=== PATIENT | female | born 1945 | race Caucasian/White ===

== ENCOUNTER 2024-08-03 21:58 | Inpatient (IN) | payer OTHER, SELFPAY ==
[2024-08-03 15:53] VITALS: BP 175/84
--- NOTE | 2024-08-03 15:55 | ED.GENMED ---
ED Provider Triage
<Amilcar Berman PA-C - Last Filed: 08/03/24 15:56>
-
Patient seen by provider in Triage?: Seen in Triage
Attestation: A medical screening examination has been initiated by a qualified medical provider. Based on the assessment performed at this time, it has been determined that an emergent medical condition may exist and the patient has been informed
that further medical evaluation and possible additional diagnostic testing may be needed.
HPI: 78-year-old female presents to the emergency department for evaluation shortness of breath as well as a 5 pound weight gain over the past several days. Notes that her tobacco dipper recently discontinued her diuretic and started her on
lisinopril and metoprolol, feels as though the symptoms have progressed since that time. No chest pain
GENERAL: Alert , in no apparent distress
EYE: No visual abnormalities.
NECK: Trachea midline
ENT: No visible abnormalities.
LUNGS: Mildly tachypneic, no rales
NEUROLOGICAL: Alert and oriented
SKIN: Skin intact. No visible changes.
MUSCULOSKELETAL: Moving extremities normally
PSYCH: Normal and appropriate interaction.
This is a medical evaluation conducted in person to initiate diagnostic evaluation and provide initial therapeutics. Please see further documentation by the treating clinician.
History of Present Illness
<Amilcar Berman PA-C - Last Filed: 08/03/24 15:56>
General
Chief Complaint: Breathing Problem
Time Seen by Provider: 08/03/24 18:41
<Jasvir Alvarez DO - Last Filed: 08/03/24 19:04>
General
Source: patient
History of Present Illness
History of Present Illness:
78-year-old female presents to the emergency room complaining of shortness of breath with exertion. Patient feels like she needs to stop walking after about 25 feet or so to catch her breath. This is not typical for her. Patient states that she
has been increasing shortness of breath the past week or so. She contacted her tobacco dipper at [facility] who recommended she come to the emergency room. She feels like she may have had about a 5 pound weight gain over the past month or so. She
denies any chest pain. She denies any fever, chills, cough.
Phy Exam
<Jasvir Alvarez DO - Last Filed: 08/03/24 19:04>
Physical Exam
Physical Exam:
General: Awake, Alert, Oriented X3. No acute distress.
Vitals: unremarkable
Head: Atraumatic
Eyes: Pupils equal, EOMI
Throat: Airway intact, no exudates
Neck: Trachea midline
Lungs: Crackles bilaterally, decreased breath sounds bilateral bases
Heart: Regular rate, 2/6 murmurs
Abd: Soft, Nontender, No pulsatile mass
Neuro: Nonfocal
Skin: Warm, dry, no rash
Extremities: pulses equal b/l, 1+ edema
Scores
<Chuck Dee MD - Last Filed: 08/04/24 02:58>
Heart Failure Risk
Heart Failure Risk Score: Not Applicable
Course
<Amilcar Berman PA-C - Last Filed: 08/03/24 15:56>
Orders/Labs/Results
Orders:
Orders
08/03/24 Dinner
NPO
Allow oral meds: Yes
Allow clear liquids: No
08/03/24 15:52
Electrocardiogram (*1) Urgent
Reason for Study: Shortness of Breath
08/03/24 15:53
EKG- Treatment ONCE
08/03/24 15:56
CR Chest - 2 Views Urgent
Comment:
Reason For Exam: SOB
08/03/24 16:08
Complete Blood Count/With Diff Urgent
Comprehensive Metabolic Panel Urgent
NT-proBNP Urgent
Troponin I Urgent
08/03/24 19:01
CT Chest PE Study Urgent
Comment:
Reason For Exam: sob with exertion
08/03/24 20:27
Furosemide [Lasix] 40 mg IV NOW STA
Nitroglycerin Ointment [Nitro-Bid] 1 inch TOPICAL NOW STA
08/03/24 21:26
Admit/Transfer Patient As Directed
Co-Sign Provider:
Level of Care: Inpatient admission
Assign to:: Medical/Surgical
Physician / Group: Matt De Santiago
Diagnosis: Large hiatal hernia containing an intrathoracic stomach with organoaxial ro
Reason for Hospitalization: Large hiatal hernia containing an intrathoracic stomach with organoaxial rotation
Expected length of stay greater than two midnights?: Yes
ELOS- Estimated Length of Stay in days: 3
I certify the patient meets the requirements for IP care: Yes
PRN Pain Medication Management As Directed
May give lesser potent ordered pain med per pt: Yes
preference::
Protocol:: Medication orders for pain may be administered in a
manner that supports deferring to patient preference
when the pt is:
- Requesting an ordered lesser potent pain medication.
Least to most potent pain medications are defined
as: acetaminophen < NSAID < tramadol < opioids
(morphine, oxycodone, hydromorphone).
- Requesting a lesser dose of the same medication IF
ORDERED.
- Requesting a less intrusive route of administration
if both routes are prescribed by the provider (PO <
IV).
08/03/24 21:27
Code Status As Directed
Resuscitation Status: Full Code
08/03/24 22:16
Lactate Level [Lactic Acid] Urgent
08/03/24 22:46
Metoprolol Xl [Toprol Xl] 25 mg PO HS
Polyethylene Glycol Powder [Miralax] 17 grams PO DAILYPRN PRN
08/03/24 22:46
Activity As Directed
Activity Level: Ambulate
Gastrointestinal Tubes As Directed
Type: [place] sump
To suction?: Yes
Type of suction: Low intermittent
Irrigate tube?: No
Pneumatic Compression Sleeves As Directed
Type: Knee high
Vital Signs As Directed
Frequency: Per unit guidelines
Weight As Directed
Frequency: Once
DX Deep Vein Thrombosis Video Routine
08/04/24 06:00
Basic Metabolic Panel IN AM
Complete Blood Count/No Diff IN AM
Levothyroxine [Synthroid] 50 mcg PO DAILY@0600
08/04/24 08:00
Ascorbic Acid [Vitamin C] 500 mg PO DAILY
Aspirin Chewable [Low Strength Aspirin] 81 mg PO DAILY
Cholecalciferol (Vitamin D3) [VITAMIN D3 (cholecalciferol)] 25 mcg PO DAILY
Cyanocobalamin [Vitamin B-12] 1,000 mcg PO DAILY
Lisinopril [Zestril] 20 mg PO DAILY
Multivitamin [Theragran] 1 tablet PO DAILY
Pantoprazole [Protonix] 40 mg PO DAILY
08/04/24 18:00
Rosuvastatin Calcium [Crestor] 10 mg PO MoWeFr@1800
08/04/24 21:26
coenzyme Q10 [CoQ-10] 100 mg PO MOWEFR
Abnormal Lab Results
08/03/24
16:08
MCHC 31.9 L g/dL
(33.0-37.0)
RDW 14.6 H %
(11.5-14.5)
Absolute Lymphs (auto) 0.9 L 10^3/uL
(1.2-3.4)
Absolute Monos (auto) 0.7 H 10^3/uL
(0.1-0.6)
Neutrophils % 76.6 H %
(42.2-75.2)
Lymphocytes % 12.4 L %
(20.5-51.1)
Carbon Dioxide 31 H mmol/L
(22-30)
BUN 22 H mg/dl
(7-17)
Glucose 109 H mg/dl
(70-99)
08/03/24 16:08
08/03/24 16:08
Vital Signs
Initial and Last Documented VS:
Initial Vital Signs
Temp Pulse Resp BP Pulse Ox
36.7 C 75 18 175/84 96
08/03/24 15:53 08/03/24 15:53 08/03/24 15:53 08/03/24 15:53 08/03/24 15:53
Last Documented Vital Signs
Temp Pulse Resp BP Pulse Ox
37.9 C 71 14 162/92 94
08/03/24 22:49 08/03/24 23:13 08/03/24 22:49 08/03/24 23:13 08/04/24 00:24
<Jasvir Alvarez, DO - Last Filed: 08/03/24 19:04>
Orders/Labs/Results
Orders:
Orders
08/03/24 Dinner
NPO
Allow oral meds: Yes
Allow clear liquids: No
08/03/24 15:52
Electrocardiogram (*1) Urgent
Reason for Study: Shortness of Breath
08/03/24 15:53
EKG- Treatment ONCE
08/03/24 15:56
CR Chest - 2 Views Urgent
Comment:
Reason For Exam: SOB
08/03/24 16:08
Complete Blood Count/With Diff Urgent
Comprehensive Metabolic Panel Urgent
NT-proBNP Urgent
Troponin I Urgent
08/03/24 19:01
CT Chest PE Study Urgent
Comment:
Reason For Exam: sob with exertion
08/03/24 20:27
Furosemide [Lasix] 40 mg IV NOW STA
Nitroglycerin Ointment [Nitro-Bid] 1 inch TOPICAL NOW STA
08/03/24 21:26
Admit/Transfer Patient As Directed
Co-Sign Provider:
Level of Care: Inpatient admission
Assign to:: Medical/Surgical
Physician / Group: Matt De Santiago
Diagnosis: Large hiatal hernia containing an intrathoracic stomach with organoaxial ro
Reason for Hospitalization: Large hiatal hernia containing an intrathoracic stomach with organoaxial rotation
Expected length of stay greater than two midnights?: Yes
ELOS- Estimated Length of Stay in days: 3
I certify the patient meets the requirements for IP care: Yes
PRN Pain Medication Management As Directed
May give lesser potent ordered pain med per pt: Yes
preference::
Protocol:: Medication orders for pain may be administered in a
manner that supports deferring to patient preference
when the pt is:
- Requesting an ordered lesser potent pain medication.
Least to most potent pain medications are defined
as: acetaminophen < NSAID < tramadol < opioids
(morphine, oxycodone, hydromorphone).
- Requesting a lesser dose of the same medication IF
ORDERED.
- Requesting a less intrusive route of administration
if both routes are prescribed by the provider (PO <
IV).
08/03/24 21:27
Code Status As Directed
Resuscitation Status: Full Code
08/03/24 22:16
Lactate Level [Lactic Acid] Urgent
08/03/24 22:46
Metoprolol Xl [Toprol Xl] 25 mg PO HS
Polyethylene Glycol Powder [Miralax] 17 grams PO DAILYPRN PRN
08/03/24 22:46
Activity As Directed
Activity Level: Ambulate
Gastrointestinal Tubes As Directed
Type: [place] sump
To suction?: Yes
Type of suction: Low intermittent
Irrigate tube?: No
Pneumatic Compression Sleeves As Directed
Type: Knee high
Vital Signs As Directed
Frequency: Per unit guidelines
Weight As Directed
Frequency: Once
DX Deep Vein Thrombosis Video Routine
08/04/24 06:00
Basic Metabolic Panel IN AM
Complete Blood Count/No Diff IN AM
Levothyroxine [Synthroid] 50 mcg PO DAILY@0600
08/04/24 08:00
Ascorbic Acid [Vitamin C] 500 mg PO DAILY
Aspirin Chewable [Low Strength Aspirin] 81 mg PO DAILY
Cholecalciferol (Vitamin D3) [VITAMIN D3 (cholecalciferol)] 25 mcg PO DAILY
Cyanocobalamin [Vitamin B-12] 1,000 mcg PO DAILY
Lisinopril [Zestril] 20 mg PO DAILY
Multivitamin [Theragran] 1 tablet PO DAILY
Pantoprazole [Protonix] 40 mg PO DAILY
08/04/24 18:00
Rosuvastatin Calcium [Crestor] 10 mg PO MoWeFr@1800
08/04/24 21:26
coenzyme Q10 [CoQ-10] 100 mg PO MOWEFR
Abnormal Lab Results
08/03/24
16:08
MCHC 31.9 L g/dL
(33.0-37.0)
RDW 14.6 H %
(11.5-14.5)
Absolute Lymphs (auto) 0.9 L 10^3/uL
(1.2-3.4)
Absolute Monos (auto) 0.7 H 10^3/uL
(0.1-0.6)
Neutrophils % 76.6 H %
(42.2-75.2)
Lymphocytes % 12.4 L %
(20.5-51.1)
Carbon Dioxide 31 H mmol/L
(22-30)
BUN 22 H mg/dl
(7-17)
Glucose 109 H mg/dl
(70-99)
08/03/24 16:08
08/03/24 16:08
Vital Signs
Initial and Last Documented VS:
Initial Vital Signs
Temp Pulse Resp BP Pulse Ox
36.7 C 75 18 175/84 96
08/03/24 15:53 08/03/24 15:53 08/03/24 15:53 08/03/24 15:53 08/03/24 15:53
Last Documented Vital Signs
Temp Pulse Resp BP Pulse Ox
37.9 C 71 14 162/92 94
08/03/24 22:49 08/03/24 23:13 08/03/24 22:49 08/03/24 23:13 08/04/24 00:24
<Chuck Dee MD - Last Filed: 08/04/24 02:58>
Orders/Labs/Results
Orders:
Orders
08/03/24 Dinner
NPO
Allow oral meds: Yes
Allow clear liquids: No
08/03/24 15:52
Electrocardiogram (*1) Urgent
Reason for Study: Shortness of Breath
08/03/24 15:53
EKG- Treatment ONCE
08/03/24 15:56
CR Chest - 2 Views Urgent
Comment:
Reason For Exam: SOB
08/03/24 16:08
Complete Blood Count/With Diff Urgent
Comprehensive Metabolic Panel Urgent
NT-proBNP Urgent
Troponin I Urgent
08/03/24 19:01
CT Chest PE Study Urgent
Comment:
Reason For Exam: sob with exertion
08/03/24 20:27
Furosemide [Lasix] 40 mg IV NOW STA
Nitroglycerin Ointment [Nitro-Bid] 1 inch TOPICAL NOW STA
08/03/24 21:26
Admit/Transfer Patient As Directed
Co-Sign Provider:
Level of Care: Inpatient admission
Assign to:: Medical/Surgical
Physician / Group: Matt De Santiago
Diagnosis: Large hiatal hernia containing an intrathoracic stomach with organoaxial ro
Reason for Hospitalization: Large hiatal hernia containing an intrathoracic stomach with organoaxial rotation
Expected length of stay greater than two midnights?: Yes
ELOS- Estimated Length of Stay in days: 3
I certify the patient meets the requirements for IP care: Yes
PRN Pain Medication Management As Directed
May give lesser potent ordered pain med per pt: Yes
preference::
Protocol:: Medication orders for pain may be administered in a
manner that supports deferring to patient preference
when the pt is:
- Requesting an ordered lesser potent pain medication.
Least to most potent pain medications are defined
as: acetaminophen < NSAID < tramadol < opioids
(morphine, oxycodone, hydromorphone).
- Requesting a lesser dose of the same medication IF
ORDERED.
- Requesting a less intrusive route of administration
if both routes are prescribed by the provider (PO <
IV).
08/03/24 21:27
Code Status As Directed
Resuscitation Status: Full Code
08/03/24 22:16
Lactate Level [Lactic Acid] Urgent
08/03/24 22:46
Metoprolol Xl [Toprol Xl] 25 mg PO HS
Polyethylene Glycol Powder [Miralax] 17 grams PO DAILYPRN PRN
08/03/24 22:46
Activity As Directed
Activity Level: Ambulate
Gastrointestinal Tubes As Directed
Type: [place] sump
To suction?: Yes
Type of suction: Low intermittent
Irrigate tube?: No
Pneumatic Compression Sleeves As Directed
Type: Knee high
Vital Signs As Directed
Frequency: Per unit guidelines
Weight As Directed
Frequency: Once
DX Deep Vein Thrombosis Video Routine
08/04/24 06:00
Basic Metabolic Panel IN AM
Complete Blood Count/No Diff IN AM
Levothyroxine [Synthroid] 50 mcg PO DAILY@0600
08/04/24 08:00
Ascorbic Acid [Vitamin C] 500 mg PO DAILY
Aspirin Chewable [Low Strength Aspirin] 81 mg PO DAILY
Cholecalciferol (Vitamin D3) [VITAMIN D3 (cholecalciferol)] 25 mcg PO DAILY
Cyanocobalamin [Vitamin B-12] 1,000 mcg PO DAILY
Lisinopril [Zestril] 20 mg PO DAILY
Multivitamin [Theragran] 1 tablet PO DAILY
Pantoprazole [Protonix] 40 mg PO DAILY
08/04/24 18:00
Rosuvastatin Calcium [Crestor] 10 mg PO MoWeFr@1800
08/04/24 21:26
coenzyme Q10 [CoQ-10] 100 mg PO MOWEFR
Abnormal Lab Results
08/03/24
16:08
MCHC 31.9 L g/dL
(33.0-37.0)
RDW 14.6 H %
(11.5-14.5)
Absolute Lymphs (auto) 0.9 L 10^3/uL
(1.2-3.4)
Absolute Monos (auto) 0.7 H 10^3/uL
(0.1-0.6)
Neutrophils % 76.6 H %
(42.2-75.2)
Lymphocytes % 12.4 L %
(20.5-51.1)
Carbon Dioxide 31 H mmol/L
(22-30)
BUN 22 H mg/dl
(7-17)
Glucose 109 H mg/dl
(70-99)
08/03/24 16:08
08/03/24 16:08
Vital Signs
Initial and Last Documented VS:
Initial Vital Signs
Temp Pulse Resp BP Pulse Ox
36.7 C 75 18 175/84 96
08/03/24 15:53 08/03/24 15:53 08/03/24 15:53 08/03/24 15:53 08/03/24 15:53
Last Documented Vital Signs
Temp Pulse Resp BP Pulse Ox
37.9 C 71 14 162/92 94
08/03/24 22:49 08/03/24 23:13 08/03/24 22:49 08/03/24 23:13 08/04/24 00:24
<Jasvir Alvarez DO - Last Filed: 08/03/24 19:04>
*Pulse Oximetry
Patient hypoxic: no
*EKG
Interpreted by ED Provider?: Yes
Heart Rate: 83
Rate: normal
Rhythm: sinus
[place]: normal axis
Interval: normal interval
QRS Pattern: normal QRS
Ischemia: no ischemia
*Board Member Interpretation
Rate: normal
Interpretation: normal
Heart Rate: 83
Rhythm: sinus
<Chuck Dee MD - Last Filed: 08/04/24 02:58>
*Critical Care Note
Total Time (30-74mins, 75-104mins- exclusive of procedures): Not Applicable
<Chuck Dee MD - Last Filed: 08/04/24 02:58>
Update Note
Update Note:
UPDATE (Chuck Dee MD)
I have seen and evaluated the patient after signout and reviewed all labs and imaging.
Focused HPI: 78-year-old female with a past medical history of hypertension, hyperlipidemia, GERD, hypothyroidism who presents to the ER for evaluation of shortness of breath. Patient reports that she has had worsening exertional dyspnea for the
past few months but particularly bad over the past few weeks. She says that she can barely walk a few steps before becoming winded. She says she is having orthopnea. She said she has about 5 pound weight gain over the past 2 weeks. She does note
her blood pressures have been running high; she apparently was recently switched from benazepril/HCTZ which she was taking until a month ago at which point she was started on metoprolol and lisinopril; she says she was switched because her doctor
wanted to get her off of the diuretic. She does see a tobacco dipper Dr. Aguiar through [facility].
Physical exam: Awake alert no distress. Hypertensive with mild tachypnea. No hypoxia. Breath sounds diminished at the lung bases. No cardiac rubs gallops or murmurs. She does have some JVD and some trace edema in her legs.
Medical Decision Makin-year-old female presents for evaluation of exertional dyspnea, orthopnea, weight gain; history and exam concerning for CHF likely exacerbated by recent hypertension in the setting of blood pressure medication adjustment.
Her CBC and CMP were essentially unremarkable here. Troponin negative. BNP mildly elevated. Chest x-ray showed pulmonary vascular congestion, CTA chest no PE no other acute pathology. Will treat with nitro for hypertension, Lasix. Admit for new
onset CHF. Discussed with hospitalist.
ED Attending Note
<Amilcar Berman PA-C - Last Filed: 08/03/24 15:56>
-
Portions of this chart may have been created with voice recognition software.� Occasional wrong word or��sound alike� substitutions may have occurred due to the inherent limitations of voice recognition software.
Discharge Plan
Departure
Patient Disposition: Admit
Date of Disposition: 08/03/24
Time of Disposition: 20:29
Admit to doctor: Jonnathan
Presentation/result/management discussed w/ accepting MD/DO: Hospitalist
Discharge Problem:
CHF (congestive heart failure), Hypertension
Interventions
Interventions:
*Risk Screen - Suicide Last Done: 08/03/24 22:50
*General Assessment Last Done: 08/03/24 15:53
*Neglect/Abuse Screening Last Done: 08/03/24 15:53
ED- Fall Risk Assessment Last Done: 08/03/24 22:42
*ED COVID-19 Vaccine History Last Done: 08/03/24 22:50
*Nursing Disposition Last Done: 08/03/24 22:42
ED- Cardiac Assessment Last Done: 08/03/24 19:16
ED- Pulmonary Assessment Last Done: 08/03/24 19:16
Discharge Date and Time
Discharge Date/Time: 08/03/24 22:42
[2024-08-03 16:22] LABS: % Basophils 0.4 % (0-2); % Eosinophils 1.5 % (0-6); % Immature Granulocytes 0.5 % (0-0.5); % Lymphocytes 12.4 % (20.5-51.1); % Monocytes 8.6 % (1.7-9.3); % Neutrophils 76.6 % (42.2-75.2); Absolute Eosinophils 0.1 10^3/uL (0-0.7); Absolute Lymphocytes 0.9 10^3/uL (1.2-3.4); Absolute Monocytes 0.7 10^3/uL (0.1-0.6); Absolute Neutrophils 5.8 10^3/uL (1.4-6.5); Hematocrit 43.3 % (37.0-47.0); Hemoglobin 13.8 g/dL (12.0-16.0); Mean Corp Hgb Conc. 31.9 g/dL (33.0-37.0); Mean Corpuscular Hgb 28.7 pg (27.0-31.0); Mean Platelet Volume 10.4 fL (7.4-10.4); Nucleated Red Blood Cells % 0 %; Platelet Count 179 10^3/uL (130-400); Red Blood Cell Count 4.81 10^6/uL (4.20-5.40); Red Cell Dist. Width 14.6 % (11.5-14.5); White Blood Cell Count 7.6 10^3/uL (4.8-10.8)
[2024-08-03 16:35] LABS: ALT (SGPT) 33 U/L (0-35); AST (SGOT) 25 U/L (14-36); Albumin 4.6 g/dl (3.5-5.0); Alkaline Phosphatase 88 U/L (38-126); Blood Urea Nitrogen 22 mg/dl (7-17); Calcium 9.8 mg/dl (8.4-10.2); Carbon Dioxide 31 mmol/L (22-30); Chloride 104 mmol/L (98-107); Glucose 109 mg/dl (70-99); Sodium 140 mmol/L (135-145); Total Bilirubin 0.9 mg/dl (0.2-1.3); Total Protein 6.7 g/dl (6.3-8.2); eGFR > 60.00
[2024-08-03 16:42] LABS: NT-proBNP 556 pg/ml; Troponin I < 0.012 ng/ml
[2024-08-03 18:00] VITALS: BP 154/95
[2024-08-03 19:15] VITALS: BP 184/88
[2024-08-03 19:18] VITALS: BMI 33.6
--- NOTE | 2024-08-03 20:34 | HPS.HSE ---
Addendum entered and electronically signed by Matt De Santiago DO 08/03/24 22:32:
Patient seen and examined independently. Agree with findings and plan as set forth by GAB Boone.
Patient is a 78y F with PMH significant for hypertension, hypothyroidism and hiatal hernia who presents to ED complaining of SOB that has been persistent for the past few weeks. Dyspnea is worse with activity or with lying flat. Patient reports
that the dyspnea was worse this AM and she called her Lock Fitter who referred her to the ED for evaluation.
Patient notes that she has gained some weight recently (usually 189-191, now 195 by her home scale). She occasionally has some ankle 'tightness'.
She denies any fevers / chills, N/V/D, abdominal pain, chest pain, etc.
Ass:
Dyspnea
Large Hiatal Hernia with Intrathoracic Stomach and Organoaxial Rotation
GERD
Benign Hypertension
Hypothyroidism
Plan:
Admit for further evaluation and treatment.
NG decompression for intrathoracic stomach with organoaxial rotation.
Surgery evaluation for additional recommendations.
Follow for clinical improvement.
Patient states that she had an echo last month which was 'normal' - will try to obtain those records.
BNP unremarkable. No evidence of volume overload on exam. No pulmonary edema on exam / imaging.
Hold further Lasix for now.
Follow daily weights, I/Os, etc.
Check TFTs.
Original Note:
Family Physician
-
Family Physician: Steve Cope
Chief Complaint
-
exertional dyspnea
History of Present Illness
Patient is a 78-year-old female with past medical history significant for hypertension, hyperlipidemia, GERD, and hypothyroidism who presented to [facility] ED for evaluation of exertional dyspnea. Patient reports increased exertional
dyspnea over the past few weeks, especially when ambulating up the stairs. Patient states it has been present for months and this morning she got up to go to bathroom and became short of breath and she attempted to lay back down but could not get
comfortable. She called cardiology office at [facility] who told her to go get evaluated at ED. Patient denies any fever, chills, chest pain, nausea, vomiting, constipation or urinary symptoms.
Medical History
Past Medical History
Past Medical History: Reports Other
Additional Past Medical History:
benign hypertension
hyperlipidemia
GERD
hypothyroidism
Past Surgical History: Reports None
Social History
Tobacco: Non-smoker
Alcohol: Occasional
Drug: None
Family History
Family History: Not pertinent
Allergies / Home Medications
Allergies reflects when Allergies were last updated in [facility].
Home Medications with original date entered in [facility]
Allergy/Medication List:
Allergies
Allergy/AdvReac Type Severity Reaction Status Date / Time
No Known Allergies Allergy Unverified 08/03/24 15:58
Home Medications
ascorbic acid (vitamin C) 500 mg tablet (Vitamin C) 500 mg PO DAILY 08/03/24
aspirin 81 mg chewable tablet 81 mg PO DAILY 08/03/24
cholecalciferol (vitamin D3) 25 mcg (1,000 unit) tablet (Vitamin D3) 25 mcg PO DAILY 08/03/24
coenzyme Q10 100 mg capsule (CoQ-10) 100 mg PO MOWEFR 08/03/24
cyanocobalamin (vitamin B-12) 1,000 mcg tablet 1,000 mcg PO DAILY 08/03/24
levothyroxine 50 mcg tablet 50 mcg PO DAILY 08/03/24
lisinopril 20 mg tablet 20 mg PO DAILY 08/03/24
metoprolol succinate 25 mg tablet,extended release 24 hr 25 mg PO HS 08/03/24
omeprazole 40 mg capsule,delayed release 40 mg PO DAILY 08/03/24
polyethylene glycol 3350 17 gram oral powder packet (Miralax) 17 g PO DAILYPRN PRN constipation 08/03/24
rosuvastatin 10 mg tablet 10 mg PO MOWEFR 08/03/24
therapeutic multivitamin 1 tab PO DAILY 08/03/24
Review of Systems
-
History Source: Patient
Constitutional: Reports No Symptoms
EENT: Reports No Symptoms
Respiratory: Reports Cough and Trouble Breathing
Cardiac: Reports No Symptoms
Abdomen/GI: Reports No Symptoms
: Reports No Symptoms
Musculoskeletal: Reports No Symptoms
Skin: Reports No Symptoms
Neurological: Reports No Symptoms
Endocrine: Reports No Symptoms
Hematologic/Lymphatic: Reports No Symptoms
Psych: Reports No Symptoms
Physical Exam
Vital Signs
Vital Signs
Temp Pulse Resp BP Pulse Ox
98.0 F 67 27 184/88 92
08/03/24 18:00 08/03/24 19:30 08/03/24 19:30 08/03/24 19:15 08/03/24 20:17
Physical Exam
General: Well Developed, Well Nourished, No Apparent Distress, Comfortable and Conversant
HEENT: NormoCephalic, Moist mucous membranes and Atraumatic
Respiratory: Clear
Cardiac: S1/S2 and Regular Rhythm; No Murmur, Rub or Gallop
Breast: Deferred by me
GI: Soft, Non Tender, Non Distended and Normal Bowel Sounds; No Organomegaly
Rectal: Deferred by Provider
Genito-urinary: Deferred by me
Musculoskeletal: No Clubbing, No Cyanosis and No Edema
Skin: Warm and IV/Catheter Site; No Rash
Neuro: Awake, Alert, AO x 3 and Nonfocal/grossly intact
Psych: Calm and Intact Judgment/Insight
Laboratory Results
-
08/03/24 16:08
08/03/24 16:08
Laboratory Results
Total Bilirubin 0.9 mg/dl (0.2-1.3) 08/03/24 16:08
AST 25 U/L (14-36) 08/03/24 16:08
ALT 33 U/L (0-35) 08/03/24 16:08
Alkaline Phosphatase 88 U/L (38-126) 08/03/24 16:08
Troponin I < 0.012 ng/ml 08/03/24 16:08
Data Reviewed
-
Diagnostic Radiology: Report Reviewed by me (CXR: Mild pulmonary vascular congestion. Large hiatal hernia.)
Lab Data: Labs Reviewed by me (BNP 556)
Impression/Plan
-
IMPRESSION/PLAN:
#Large hiatal hernia containing an intrathoracic stomach with organoaxial rotation
BNP 559
EKG: NORMAL SINUS RHYTHM
LEFT AXIS DEVIATION
INCOMPLETE RIGHT BUNDLE BRANCH BLOCK
CXR: Mild pulmonary vascular congestion. Large hiatal hernia.
Chest CT: No CTA evidence for an acute pulmonary thromboembolism.
Large hiatal hernia.
- Admit to med/surg
- NPO
- NGT
- Consult Surgery
#benign hypertension
- continue lisinopril and metoprolol
#hyperlipidemia
- continue rosuvastatin
#GERD
- continue omeprazole
#hypothyroidism
- continue levothyroxine
Code status: Full code
DVT prophylaxis: SCDs
[2024-08-03] MEDS: LASIX 40 MG IV (20:41)
[2024-08-03] MEDS: NITRO-BID 1 INCH TOPICAL (20:43)
[2024-08-03 22:37] LABS: Lactic Acid 0.6 mmol/L (0.7-2.0)
[2024-08-03 22:48] VITALS: BMI 31.9
[2024-08-03 22:49] VITALS: BP 150/92
[2024-08-03] MEDS: TOPROL XL 25 MG PO (23:13)
[2024-08-04] MEDS: SYNTHROID 50 MCG PO (06:14)
[2024-08-04 07:28] VITALS: BP 175/90
[2024-08-04 07:35] VITALS: BMI 31.9
[2024-08-04] MEDS: ZESTRIL 20 MG PO (08:05)
[2024-08-04] MEDS: PROTONIX 40 MG PO (08:05)
[2024-08-04] MEDS: LOW STRENGTH ASPIRIN 81 MG PO (08:05)
[2024-08-04] MEDS: VITAMIN B-12 1000 MCG PO (08:06)
[2024-08-04] MEDS: VITAMIN C 500 MG PO (08:06)
[2024-08-04] MEDS: THERAGRAN 1 TABLET PO (08:06)
[2024-08-04] MEDS: VITAMIN D3 (cholecalciferol) 25 MCG PO (08:06)
[2024-08-04 08:07] LABS: Hematocrit 40.8 % (37.0-47.0); Hemoglobin 13.3 g/dL (12.0-16.0); Mean Corp Hgb Conc. 32.6 g/dL (33.0-37.0); Mean Corpuscular Hgb 28.5 pg (27.0-31.0); Mean Corpuscular Volume 87.4 fL (81.0-99.0); Mean Platelet Volume 10.9 fL (7.4-10.4); Platelet Count 169 10^3/uL (130-400); Red Blood Cell Count 4.67 10^6/uL (4.20-5.40); Red Cell Dist. Width 14.6 % (11.5-14.5); White Blood Cell Count 7.5 10^3/uL (4.8-10.8)
[2024-08-04 10:17] LABS: Blood Urea Nitrogen 20 mg/dl (7-17); Calcium 9.6 mg/dl (8.4-10.2); Carbon Dioxide 30 mmol/L (22-30); Chloride 100 mmol/L (98-107); Estimated Creatinine Clearance 87 ml/min; Glucose 99 mg/dl (70-99); Potassium 3.4 mmol/L (3.5-5.1); Sodium 140 mmol/L (135-145); eGFR > 60.00
--- NOTE | 2024-08-04 10:17 | CM ---
Addendum entered by Anayeli Barber 08/04/24 13:02:
PLAN: Patient discharge today to home, no needs
to transport
Original Note:
Patient seen at bedside
NPO
Surgery consult
IA completed
Lives in a 2 story home with , 2 steps to enter, flight stairs to bed/bath
PLOF: Independent, no device
Denies hh/Rehab
Denies insecurities
PCP: Garcia Baker
PHARMACY: [address], [place], [facility] mail[facility]
PLAN: discharge plan will depend on patient progress
--- NOTE | 2024-08-04 12:25 | W.PN.HOSP.TC ---
Addendum entered and electronically signed by Janak Montes MD 08/09/24 14:20:
Hypokalemia
Addendum entered and electronically signed by Janak Montes MD 08/06/24 18:15:
[id number]
Original Note:
Today's Communication/Plan
-
dc with close f/u with surgery
increase lisinopril to BID
f/u pcp, cardiology, surgery outpt
Assessment / Plan
Assessment / Plan
Physical Exam
General: Well Developed, Well Nourished, No Apparent Distress, Comfortable and Conversant
HEENT: NormoCephalic, Moist mucous membranes and Atraumatic
Respiratory: Clear
Cardiac: S1/S2 and Regular Rhythm; No Murmur, Rub or Gallop
Breast: Deferred by me
GI: Soft, Non Tender, Non Distended and Normal Bowel Sounds; No Organomegaly
Rectal: Deferred by Provider
Genito-urinary: Deferred by me
Musculoskeletal: No Clubbing, No Cyanosis and No Edema
Skin: Warm and IV/Catheter Site; No Rash
Neuro: Awake, Alert, AO x 3 and Nonfocal/grossly intact
Psych: Calm and Intact Judgment/Insight
#Large hiatal hernia containing an intrathoracic stomach with organoaxial rotation
feels better
can be dced if tolerating diet
-surgery clearing patient, can f/u outpt
#benign hypertension
- continue lisinopril and metoprolol
-increase lisinopril to BID
-f/u outpt
#hyperlipidemia
- continue rosuvastatin
#GERD
- continue omeprazole
#hypothyroidism
- continue levothyroxine
Code status: Full code
DVT prophylaxis: SCDs
More than 30 minutes spent in discharge including
Final examination of the patient
Summarizing hospital stay
Instructions for continuing care to all relevant caregivers
Preparation of discharge records, prescriptions, and referral forms
Total time spent (36 in minutes):
Anticipated Discharge: Today
Subjective/Interval History
-
Date of Service: August 04, 2024
feels better
Objective Data
-
Labs:
Laboratory Results
08/04/24
07:21
WBC 7.5
Hgb 13.3
Hct 40.8
Plt Count 169
Sodium 140
Potassium 3.4 L
Chloride 100
Carbon Dioxide 30
BUN 20 H
Creatinine 0.6
Glucose 99
Calcium 9.6
Vital Signs:
Vital Signs
Temp Pulse Resp BP Pulse Ox
98.5 F 98 18 175/90 94
08/04/24 07:28 08/04/24 08:05 08/04/24 07:28 08/04/24 08:05 08/04/24 07:28
I&O
08/03/24 08/04/24 08/05/24
06:59 06:59 06:59
Intake Total 0 / 0
Balance 0 / 0
Review of Systems
-
History Source: Patient
All other systems: Not reviewed unless documented
Data Reviewed
-
Diagnostic Radiology: Report Reviewed by me
CT Scan: Report Reviewed by me
Labs: Labs Reviewed by me
--- NOTE | 2024-08-04 12:29 | W.DS.TRANS ---
DC Summary - Film Developer
-
Discharge Instructions:
Discharge Diagnosis/Procedures Dyspnea
Large Hiatal Hernia with Intrathoracic Stomach
and Organoaxial Rotation
Diet Low Fat,Low Cholesterol,Low Residue
Activity As tolerated
Blood Work cbc and bmp in 3-5 days with pcp
Others Tests as per surgery outpt
Instructions: *PCP/Other Entry Specialist Heart Failure Instructions
Stand-Alone Forms:
Changes to Home Medications: Yes
Discharge Medications:
DC Medications w/original date entered in [facility]
ascorbic acid (vitamin C) 500 mg tablet (Vitamin C) 500 mg PO DAILY Supplement 08/03/24
aspirin 81 mg chewable tablet 81 mg PO DAILY Blood Clot Prevention/Tx 08/03/24
cholecalciferol (vitamin D3) 25 mcg (1,000 unit) tablet (Vitamin D3) 25 mcg PO DAILY Supplement 08/03/24
coenzyme Q10 100 mg capsule (CoQ-10) 100 mg PO MOWEFR 08/03/24
cyanocobalamin (vitamin B-12) 1,000 mcg tablet 1,000 mcg PO DAILY Supplement 08/03/24
levothyroxine 50 mcg tablet 50 mcg PO DAILY Thyroid 08/03/24
metoprolol succinate 25 mg tablet,extended release 24 hr 25 mg PO HS Heart Disease/Condition 08/03/24
omeprazole 40 mg capsule,delayed release 40 mg PO DAILY Gastrointestinal Issue 08/03/24
polyethylene glycol 3350 17 gram oral powder packet (Miralax) 17 g PO DAILYPRN PRN constipation 08/03/24
rosuvastatin 10 mg tablet 10 mg PO MOWEFR High Cholesterol 08/03/24
therapeutic multivitamin 1 tab PO DAILY Supplement 08/03/24
lisinopril 20 mg tablet 20 mg PO BID Blood Pressure 30 days #60 tabs 08/04/24
Home Medication Changes
lisinopril 20 mg tablet 20 mg PO BID Blood Pressure 30 days #60 tabs 08/04/24
Pending Results: No
[2024-08-04 12:35] VITALS: BP 130/90
[2024-08-04] MEDS: KCL ELIXIR 40 MEQ PO (12:38)
--- NOTE | 2024-08-04 12:57 | CON.GS ---
Consultation
-
Requesting Provider: Jonnathan
Performing Provider: Naresh
Reason for Consultation: PEH
Medical History
-
Chief Complaint: SOB
History of Present Illness:
78F with known CHF and long history of PEH p/w progressive SOB over the past few days. She noticed she was requiring rest before making it up a full flight of stairs 2/2 SOB. She has not had any issues with abd pain, nor n/v. She has been eating and
drinking normally. Denies changes to stool habits. She ate a sandwich in the ED last night with no issues.
Past Medical History
Past Medical History: Other (benign hypertension hyperlipidemia GERD hypothyroidism)
Past Surgical History: Reviewed & Noncontributory
Social History
Tobacco: Non-Smoker
Alcohol: Occasional
Drug: None
Family History
Family History: Reviewed & Noncontributory
Allergies / Home Medications
Allergy/AdvReac Type Severity Reaction Status Date / Time
No Known Allergies Allergy Unverified 08/03/24 15:58
�Medication �Instructions �Recorded �Confirmed �Type
ascorbic acid (vitamin C) 500 mg 500 mg PO DAILY Supplement 08/03/24 08/03/24 History
tablet (Vitamin C)
aspirin 81 mg chewable tablet 81 mg PO DAILY Blood Clot 08/03/24 08/03/24 History
Prevention/Tx
cholecalciferol (vitamin D3) 25 25 mcg PO DAILY Supplement 08/03/24 08/03/24 History
mcg (1,000 unit) tablet (Vitamin
D3)
coenzyme Q10 100 mg capsule 100 mg PO MOWEFR 08/03/24 08/03/24 History
(CoQ-10)
cyanocobalamin (vitamin B-12) 1,000 mcg PO DAILY Supplement 08/03/24 08/03/24 History
1,000 mcg tablet
levothyroxine 50 mcg tablet 50 mcg PO DAILY Thyroid 08/03/24 08/03/24 History
metoprolol succinate 25 mg 25 mg PO HS Heart Disease/Condition 08/03/24 08/03/24 History
tablet,extended release 24 hr
omeprazole 40 mg capsule,delayed 40 mg PO DAILY Gastrointestinal 08/03/24 08/03/24 History
release Issue
polyethylene glycol 3350 17 gram 17 g PO DAILYPRN PRN constipation 08/03/24 08/03/24 History
oral powder packet (Miralax)
rosuvastatin 10 mg tablet 10 mg PO MOWEFR High Cholesterol 08/03/24 08/03/24 History
therapeutic multivitamin 1 tab PO DAILY Supplement 08/03/24 08/03/24 History
lisinopril 20 mg tablet 20 mg PO BID Blood Pressure 30 08/04/24 08/03/24 Rx
days #60 tabs
Review of Systems
-
A 10 point review of systems was completed, and was negative except as per HPI.
Physical Exam
Vital Signs
Temp Pulse Resp BP Pulse Ox
98.5 F 98 18 130/90 94
08/04/24 07:28 08/04/24 08:05 08/04/24 07:28 08/04/24 12:35 08/04/24 12:46
08/03/24 08/04/24 08/05/24
06:59 06:59 06:59
Actual Weight 86.863 kg
Body Mass Index (BMI) 31.9
Lab Results
08/04/24 07:21
08/04/24 07:21
WBC 7.5 10^3/uL (4.8-10.8) 08/04/24 07:21
Hgb 13.3 g/dL (12.0-16.0) 08/04/24 07:21
Hct 40.8 % (37.0-47.0) 08/04/24 07:21
Plt Count 169 10^3/uL (130-400) 08/04/24 07:21
Abs Immat Gran (auto) 0.0 10^3/uL (0-0.05) 08/03/24 16:08
Neutrophils % 76.6 % (42.2-75.2) H 08/03/24 16:08
Physical Exam
General: Well Developed, Well Nourished and No Apparent Distress
GI: Soft, Non Tender and Non Distended
Skin: Warm and Dry
Neuro: AO x 3
Psych: Calm
Data Reviewed
-
CT Scan: Image Personally Visualized and interpreted, Report Reviewed by me, Discussed with Physician and Discussed with Patient
Labs: Labs Reviewed by me
Assessment / Plan
-
78F with chronic PEH with all of her stomach in the chest, admitted for SOB
No issues with PO intake
No n/v
No abd pain nor chest pain
AFVSS with exception of HTN which is a chronic issue for her
Plan:
Restart diet
Dietary education provided
Advised her to f/u with surgery office if she wishes to discuss surgery, if she is asymptomatic, given her age and comorbidities, expectant mgmt is reasonable
OK for DC
[2024-08-04 14:13] LABS: Hepatitis C Antibody Negative (Negative)
[2024-08-04 14:37] VITALS: BP 155/89
--- NOTE | 2024-08-05 14:31 | PN.CDI ---
CDI
- -
CDI:
Physician Documentation Request
Admit Date: 08/03/24 21:58
Dear Doctor Jyoti,
Patient admitted for hernia.
08/04 Potassium level: 3.4
08/04 Potassium chloride 40 meq PO administered
Based on the above, could you clarify in the progress notes, the appropriate diagnosis, if significant, that supports the above abnormalities and additional evaluation, monitoring and/or treatment rendered:
Hypokalemia
Abnormal lab value insignificant
Other
Use of terms such as suspected, likely, concern for, or probable (associated with a specific diagnosis that is being evaluated, monitored, or treated as if it exists) are acceptable and can be coded in the inpatient setting, when documented at the
time of discharge.
Thank you,
Annmarie Apodaca RN, BSN
CDI Specialist
Available via [place] text
Please use your independent medical judgment in providing your response.
== END 2024-08-04 14:52 | disposition home or self-care (01) | DRG 392 ==
LOC: 2 NORTH 21:58
PROVIDERS: Nurse Practitioner Family; Physician Assistant; ADMITTING PHYSICIAN Hospitalist; ATTENDING PHYSICIAN Internal Medicine; CONSULT PHYSICIAN Surgery; EMERGENCY PHYSICIAN Emergency Medicine; FAMILY PHYSICIAN Family Medicine
DX: K44.9 Diaphragmatic hernia without obstruction or gangrene (principal); Z79.82 Long term (current) use of aspirin; Z79.890 Hormone replacement therapy; I50.9 Heart failure, unspecified; I11.0 Hypertensive heart disease with heart failure; E78.00 Pure hypercholesterolemia, unspecified; Z79.899 Other long term (current) drug therapy; K21.9 Gastro-esophageal reflux disease without esophagitis; E03.9 Hypothyroidism, unspecified; E87.6 Hypokalemia
CPT/HCPCS: 71046; 71275; 80048; 80053; 83605; 83880; 84484; 85025; 85027; 86803; 93005; 99285; Q9967